=== PATIENT | female | born 1985 | race Caucasian/White ===

== ENCOUNTER 2018-10-22 19:04 | Outpatient (CLI) | payer MEDICAID ==
[~2018-10-22] VITALS: Ht 162.6 cm; Wt 91.8 kg
--- NOTE | 2018-10-22 19:10 | NUR ---
G3L2 36-0. Ambulatory to LDR 4 with family. Clean gown on. EFM and TOCO explained and applied. Pt states she thinks her blood pressure is high. She has an apt tomorrow with office to check BP but did not want to wait that long. Pt also states she is short of breath, has right upper sharp abd pain that goes to her right shoulder, had a headache a couple days ago but took medication and it went away, she had diarrhea 16hrs ago. Pt states she also had swelling in her hands and feet. Pt reports she is unable to hold anything in her hands. Trace edema noted to hands and feet. Pt appears to be very anxious and nervous. BP 159/93, retake noted 169/99. Pt denies having contractions, LOF or vaginal bleeding. Reports good movement. Pt states she used to take lisiniopril 10mgs but the ER told her to stop it during so she does not currently take anything for her blood pressure. 1944: called and updated on pts status. See physican notification. Pt updated on plan of care and new orders. 1999: IV started and labs obtained via IV site. LR bolus infusing without difficulties. 2099: updated on pts lab results. See physican notification. Discharge orders received. Last BP 142/78 2121: Discharge instructions given to pt and family member. Questions answered. Stressed importance of keeping apt in the morning. Pt verbalized understanding. Pt ambulatory off unit with family member and home.
[2018-10-22] MEDS ORDERED: PRENATAL MVI PO (19:23)
[2018-10-22 19:30] VITALS: BP 159/93; PULSE 86; TEMP 97.8
[2018-10-22 20:00] VITALS: BP 144/95; PULSE 81
[2018-10-22 20:15] LABS: BASO % 0.3 % (0.0-2.0); EOS # 0.1 (0.0-0.7); EOS % 0.9 % (0-4.0); GRAN # 4.8 (1.4-6.5); GRAN % 63.9 % (42.2-75.2); HEMATOCRIT 37.4 % (37.0-47.0); HEMOGLOBIN 12.7 g/dl (12.5-16.0); LYMPH % 26.5 % (20.0-51.0); MEAN CELL VOLUME 96 fl (80.0-100.0); MEAN CORPUSCULAR HEMOGLOBIN 33 pg (27.0-31.0); MEAN CORPUSCULAR HGB CONC 34 g/dl (33.0-37.0); MEAN PLATELET VOLUME 11.9 fl (7.4-10.4); MONO # 0.6 (0.1-0.6); MONO % 7.9 % (1.7-9.3); PLATELET COUNT 219 K/mm3 (130-400); REDCELL DISTRIBUTION WIDTH-CV 13.2 % (11.5-14.5)
[2018-10-22 20:26] LABS: ALANINE AMINOTRANSFERASE < 6 U/L (9-52); ALBUMIN 3.3 gm/dL (3.5-5.0); ALKALINE PHOSPHATASE 119 U/L (50-136); ANION GAP 7 mmol/L (7-16); AST,SGOT 23 U/L (15-37); BILIRUBIN,TOTAL 0.2 mg/dL (0.0-1.0); BLOOD UREA NITROGEN 9 mg/dL (7-17); CALCIUM 9.1 mg/dL (8.4-10.2); CARBON DIOXIDE 22 mmol/L (22-30); CHLORIDE 105 mmol/L (98-107); CREATININE, serum 0.47 (0.52-1.25); GLUCOSE 101 mg/dL (74-106); SODIUM 135 mmol/L (137-145); TOTAL PROTEIN 6.8 gm/dL (6.4-8.2)
[2018-10-22 20:27] LABS: COLLECTION METHOD CLEAN CATCH
[2018-10-22 20:30] VITALS: BP 147/90; PULSE 76
[2018-10-22 20:34] LABS: PH 8 (5-8); SQUAMOUS EPITHELIAL None Seen /hpf; URINE APPEARANCE Clear; URINE BACTERIA None Seen /hpf; URINE BILIRUBIN Negative (NEGATIVE); URINE BLOOD 1+ (NEGATIVE); URINE COLOR Straw; URINE GLUCOSE Negative (NEGATIVE); URINE KETONE Negative (NEGATIVE); URINE LEUKOCYTE ESTERASE Negative (NEGATIVE); URINE NITRATE Negative (NEGATIVE); URINE PROTEIN(semi-quant) Negative (NEGATIVE); URINE RBC 0-2 /hpf; URINE UROBILINOGEN Negative (NEGATIVE); URINE WBC 0-2 /hpf
[2018-10-22 20:40] LABS: TRICYCLIC ANTIDEPRESS URINE NEGATIVE
[2018-10-22 21:00] VITALS: BP 142/78; PULSE 79
[2018-10-22 21:05] VITALS: BP 146/96
== END 2018-10-22 21:22 | disposition home or self-care (01) ==
LOC: LDRO 19:04 → LDR 19:52 → LDRO 19:52 → LDR 21:22
PROVIDERS: Obstetrics & Gynecology
DX: O99.89 Other specified diseases and conditions complicating pregnancy, childbirth and the puerperium (principal); O13.3 Gestational [pregnancy-induced] hypertension without significant proteinuria, third trimester; Z3A.36 36 weeks gestation of pregnancy
CPT/HCPCS: OP; J7120

== ENCOUNTER 2018-11-05 20:46 | Outpatient (CLI) | payer MEDICAID ==
[~2018-11-05] VITALS: Ht 165.1 cm; Wt 93.2 kg
[~2018-11-05 20:46] MED LIST: PRENATAL MVI PO
--- NOTE | 2018-11-05 20:50 | NUR ---
PT ARRIVED TO THE UNIT VERY ANXIOUS WITH CONCERNS THAT SHE WAS GOING TO DELIVERY QUICKLY. PT ASSISTED OUT OF WHEELCHAIR TO THE BATHROOM, VOIDED, ASSISTED INTO GOWN. SVE PERFORMED. EFMX2 APPLIED. VS OBTAINED.
[2018-11-05 21:00] VITALS: BP 124/83; PULSE 80; TEMP 97.8
[2018-11-05] MEDS ORDERED: PROCARDIA XL 6060 MG PO (21:04)
[2018-11-05] MEDS ORDERED: PRILOSEC10 MG PO (21:05)
[2018-11-05] MEDS ORDERED: TYLENOL 325MG325 MG PO (21:05)
[2018-11-05 21:30] VITALS: BP 124/83; PULSE 80; TEMP 97.8
[2018-11-05 22:00] VITALS: BP 132/89; PULSE 83
[2018-11-05 22:20] VITALS: BP 130/87; PULSE 75
--- NOTE | 2018-11-05 22:20 | NUR ---
2213- PT MAY DC HOME PER DR. BERNAL. 222- MONITORING DC'D. PT CHANGING INTO STREET CLOTHES WHILE DISCHARGE PAPERWORK PREPARED. 2250- DISCHARGE INSTRUCTIONS REVIEWED WITH PT, UNDERSTANDING VERBALIZED. PT LEFT THE UNIT AMBULATORY FOR HOME.
== END 2018-11-05 22:50 | disposition home or self-care (01) ==
LOC: LDRO 20:46 → LDR 20:50 → LDRO 22:50
DX: O62.9 Abnormality of forces of labor, unspecified (principal); Z3A.38 38 weeks gestation of pregnancy
CPT/HCPCS: OP

== ENCOUNTER 2018-11-20 06:25 | Inpatient (IN) | payer MEDICAID ==
[2018-11-20] VITALS (22 sets, daily range): BP systolic 128–189; BP diastolic 65–107; PULSE 54–92; TEMP 97.7–98.8
[~2018-11-20] VITALS: Ht 162.6 cm; Wt 97.3 kg
[~2018-11-20 06:25] MED LIST changes: +PRILOSEC10 MG PO; +PROCARDIA XL 6060 MG PO; +TYLENOL 325MG325 MG PO
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
[2018-11-20] MEDS ORDERED: ZANTAC 300300 MG PO (07:30)
[2018-11-20 07:37] LABS: BASO % 0.3 % (0.0-2.0); EOS # 0.1 (0.0-0.7); EOS % 1.6 % (0-4.0); GRAN # 4.6 (1.4-6.5); GRAN % 66.8 % (42.2-75.2); HEMATOCRIT 39.4 % (37.0-47.0); HEMOGLOBIN 13.2 g/dl (12.5-16.0); LYMPH # 1.7 (1.2-3.4); LYMPH % 24.5 % (20.0-51.0); MEAN CELL VOLUME 95 fl (80.0-100.0); MEAN CORPUSCULAR HEMOGLOBIN 32 pg (27.0-31.0); MEAN CORPUSCULAR HGB CONC 34 g/dl (33.0-37.0); MEAN PLATELET VOLUME 12.7 fl (7.4-10.4); MONO # 0.4 (0.1-0.6); MONO % 5.9 % (1.7-9.3); PLATELET COUNT 177 K/mm3 (130-400); RED BLOOD COUNT 4.14 M/mm3 (4.10-5.30); REDCELL DISTRIBUTION WIDTH-CV 13.1 % (11.5-14.5)
[2018-11-20 07:49] LABS: TRICYCLIC ANTIDEPRESS URINE NEGATIVE
--- NOTE | 2018-11-20 08:40 | NUR ---
Dr. Reyes at bedside to assess patient/FHR strip. 0840: SVE-3/70/-2 and AROM at this time with clear fluid noted. Plan of care discussed.
--- NOTE | 2018-11-20 09:15 | NUR ---
Patient requesting epidural and Monroe Carlson CRNA called and notified. Patient very uncomfortable with contractions. 0940: Difficulty tracing FHR due to patient standing at edge of bed. 0950: Patient sitting on edge of bed and Stephanie FARLEY at bedside for placement of epidural. Difficulty tracing FHR due to patients position. FHR monitor tracing maternal heartrate at this time. 0958: Single shot given and patient tolerates well. 1005: Patient repositioned and states "I think the baby is coming" SVE-10/+2 and called and notified and is on the way. Patient prepped for vaginal delivery. 1010: Dr Reyes at bedside and patients bed taken apart and feet in stiirups. Pericare done. 1016: Patient begins to push per Dr. Portillo orders. 1018: Spontaneous vaginal delivery of head followed by body, to patient abdomen and Ilda Meza RN assumes care of infant. Cord clamped by Dr. Reyes and cut by patients sister. Cord blood obtained. 1021: Spontaneous delivery of placenta and pitocin started per protocol. Fundal massage done,bleeding WNL,begins to firm Dr. Reyes repairs 1st degree laceration and straight catherizes patient. Bed put back together and ice pack to perinuem. Fundal massage done/bleeding moderate/firm. Plan of care discussed.
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
--- NOTE | 2018-11-20 15:00 | NUR ---
Patient sits on edge of bed and feet dangled. Patient ambulatory to bathroom and void, new gown, pad, underwear on. Patient ambulatory to room and oriented and plan of care discussed.
--- NOTE | 2018-11-20 19:00 | NUR ---
SISTER HERE SUPORT PERSON. ASSISTS NEEDED WITH BABY
[2018-11-21 03:00] VITALS: BP 130/82; PULSE 92; TEMP 98.2
[2018-11-21 08:42] VITALS: BP 118/79; PULSE 88; TEMP 98.4
[2018-11-21] MEDS ORDERED: IBU800 M1 PO (09:15)
--- NOTE | 2018-11-21 10:28 | NUR ---
Initial visit attempt; Patient resting, Valve And Regulator Repairer left card of congratulations for the of her daughter and information regarding the availability of spiritual care at [facility].
--- NOTE | 2018-11-21 15:15 | NUR ---
storage worker met with patient to assess for needs. Patient moved into her sister's home in [place] recently. Patient works at [employer] and is currently trying to get a job at [employer] (where her sister is employed). Patient has two daughters that reside with their father in [place]. Patient states she has a car seat, bed, clothing and supplies for her baby. Patient states she is enrolled in [place] and is appreciative of resources supplied by worker. Patient states she attends the [employer] and she is accessing the [facility] from the [employer]. Worker provided information on [facility] services. Patient states her father lives in [place] and her mother in [place]. Patient states her mother is not capable of providing proper support as she has mental illness. Patient states she is close to her sister and appreciative of her support.
--- NOTE | 2018-11-21 16:15 | NUR ---
BP checked, 149/101. Pt c/o crampingparam given. 1715: Rpt BP check, 142/98. 1751:Dr Contreras called to notify. See physician notification.
[2018-11-21 17:52] VITALS: BP 142/98; PULSE 85; TEMP 98.4
[2018-11-21 20:30] VITALS: BP 132/86; PULSE 89; TEMP 98.8
[2018-11-22 07:10] VITALS: BP 129/84; PULSE 96; TEMP 98.7
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
== END 2018-11-22 17:00 | disposition home or self-care (01) | DRG 807 ==
LOC: OB 06:25 → LDR 06:25 → OB 13:11
PROVIDERS: ADMIT Obstetrics & Gynecology
PROC: 3E033VJ Introduction of Other Hormone into Peripheral Vein, Percutaneous Approach (ICD-10-PCS; principal; 2018-11-20)
PROC: 10E0XZZ Delivery of Products of Conception, External Approach (ICD-10-PCS; 2018-11-20)
PROC: 10907ZC Drainage of Amniotic Fluid, Therapeutic from Products of Conception, Via Natural or Artificial Opening (ICD-10-PCS; 2018-11-20)
PROC: 0HQ9XZZ Repair Perineum Skin, External Approach (ICD-10-PCS; 2018-11-20)
DX: O10.92 Unspecified pre-existing hypertension complicating childbirth (principal); Z37.0 Single live birth; O70.0 First degree perineal laceration during delivery; O69.81X0 Labor and delivery complicated by cord around neck, without compression, not applicable or unspecified; Z3A.40 40 weeks gestation of pregnancy; Z23 Encounter for immunization; O99.814 Abnormal glucose complicating childbirth; O76 Abnormality in fetal heart rate and rhythm complicating labor and delivery; O62.2 Other uterine inertia
CPT/HCPCS: J2590; J2795; J7120